=== PATIENT | male | born 1935 | race Asian ===

== ENCOUNTER 2022-01-07 09:46 | Inpatient (IN) ==
[2022-01-07 11:46] LABS: Amorphous Crystals,Urine Occasional /HPF (Few); Mucus,Urine Many /LPF (Occasional); RBC,Urine 5086 /HPF (0-4)
[2022-01-07 11:51] LABS: Bilirubin,Urine Moderate mg/dL (Negative); Blood, Urine Large mg/dL (Negative); Glucose,Urine (UA) Negative (Negative); Ketones,Urine Trace mg/dL (Negative); Nitrite,Urine Negative (Negative); Protein,Urine >=300 mg/dL (Negative); Urine Appearance Cloudy (Clear); Urine Color Brown (Yellow); Urine Specific Gravity 1.025 (1.001-1.035); Urine pH 5.5 (4.5-8.0)
[2022-01-07 12:10] LABS: Basophils % 0.2 % (0.0-0.8); Eosinophils # 0.1 10*3/uL (0.0-0.87); Eosinophils % 0.6 % (0.00-10.9); Hematocrit 34.6 VOL% (42.0-52.0); Hemoglobin 11.2 GM/DL (14.0-18.0); Immature Granulocytes % 0.1 %; Immature Granulocytes Absolute 0.01 #; Lymphocytes # 1.1 10*3/uL (1.4-4.0); Lymphocytes % 13.2 % (21.2-54.2); Mean Corpuscular HGB Conc 32.4 GM/DL (32-36); Mean Corpuscular Volume 106.5 FL (87-102); Mean Platelet Volume 12.3 FL (9.6-12.0); Monocytes % 6.2 % (1.7-12.7); Neutrophils % 79.7 % (38.7-73.9); Platelet Count 135 T/CUMM (130-400); Red Blood Count 3.25 MC/CUMM (3.8-5.5); Red Cell Distribution Width 11.9 % (9.3-17.3); White Blood Count 8.2 T/CUMM (4-12)
[2022-01-07 12:36] LABS: Albumin 3.5 G/DL (3.4-5.0); Bilirubin,Total 0.4 MG/DL (0.20-1.00); Calcium 8.1 MG/DL (8.5-10.1); Osmolality,Calculated 283.3 MOS/KG (273-304); Total Protein 7.2 G/DL (6.4-8.2)
[2022-01-07] MEDS ORDERED: SODIUM CHLORIDE 0.9% 1,000 ML IV STA (12:48)
[2022-01-07 13:57] LABS: Eosinophils 2 % (0-10); Lymphocytes 13 % (20-55); Segmented Neutrophils 84 % (50-85); Total Cells Counted 100
[2022-01-07 13:58] LABS: Stomatocytes Slight
[2022-01-07 13:59] LABS: Platelet Estimate Adequate
[2022-01-07] MEDS ORDERED: GLUCAGON 1 MG VIAL IM PRN (18:30)
[2022-01-07] MEDS ORDERED: DEXTROSE 10% 250 ML BAG IV PRN (18:39)
[2022-01-07] MEDS: DIPYRIDAMOLE/ASPIRIN 200-25 MG CAPSULE PO SCH (21:45)
[2022-01-07] MEDS: ATORVASTATIN 40 MG TABLET PO SCH (21:45)
[2022-01-08 06:18] LABS: Basophils % 0.1 % (0.0-0.8); Eosinophils # 0.1 10*3/uL (0.0-0.87); Eosinophils % 0.8 % (0.00-10.9); Hematocrit 38.3 VOL% (42.0-52.0); Hemoglobin 12.5 GM/DL (14.0-18.0); Immature Granulocytes % 0.3 %; Immature Granulocytes Absolute 0.02 #; Lymphocytes # 1.3 10*3/uL (1.4-4.0); Lymphocytes % 15.9 % (21.2-54.2); Mean Corpuscular HGB Conc 32.6 GM/DL (32-36); Mean Corpuscular Volume 105.5 FL (87-102); Mean Platelet Volume 12.4 FL (9.6-12.0); Monocytes % 4.8 % (1.7-12.7); Neutrophils % 78.1 % (38.7-73.9); Platelet Count 123 T/CUMM (130-400); Red Blood Count 3.63 MC/CUMM (3.8-5.5); White Blood Count 7.9 T/CUMM (4-12)
[2022-01-08 06:57] LABS: Calcium 8.5 MG/DL (8.5-10.1); Osmolality,Calculated 280.1 MOS/KG (273-304); Potassium 4.1 MMOL/L (3.5-5.1); Thyroid Stimulating Hormone 2.87 uIU/ml (0.358-3.74)
[2022-01-08] MEDS: SULFAMETHOX/TRIMETHOPRIM 800-160 MG TABLET PO SCH ×2 (16:37→21:37)
[2022-01-08] MEDS: DEXTROSE 5% NACL 0.45% 1,000 ML IV SCH (16:38)
[2022-01-08] MEDS: PANTOPRAZOLE 40 MG TABLET PO SCH (16:38)
[2022-01-08] MEDS: DIPYRIDAMOLE/ASPIRIN 200-25 MG CAPSULE PO SCH (17:09)
[2022-01-08] MEDS: ATORVASTATIN 40 MG TABLET PO SCH (21:36)
[2022-01-09] MEDS: DEXTROSE 5% NACL 0.45% 1,000 ML IV SCH ×2 (02:47→10:59)
[2022-01-09 05:46] LABS: Basophils % 0.3 % (0.0-0.8); Eosinophils # 0.1 10*3/uL (0.0-0.87); Hematocrit 34.6 VOL% (42.0-52.0); Hemoglobin 11.2 GM/DL (14.0-18.0); Immature Granulocytes % 0.1 %; Immature Granulocytes Absolute 0.01 #; Lymphocytes # 1.6 10*3/uL (1.4-4.0); Lymphocytes % 21.7 % (21.2-54.2); Mean Corpuscular HGB Conc 32.4 GM/DL (32-36); Mean Corpuscular Volume 107.1 FL (87-102); Mean Platelet Volume 12.3 FL (9.6-12.0); Monocytes % 6.2 % (1.7-12.7); Neutrophils % 70.7 % (38.7-73.9); Platelet Count 135 T/CUMM (130-400); Red Blood Count 3.23 MC/CUMM (3.8-5.5); White Blood Count 7.3 T/CUMM (4-12)
[2022-01-09 06:07] LABS: Calcium 8.1 MG/DL (8.5-10.1); Osmolality,Calculated 279.3 MOS/KG (273-304); Potassium 3.4 MMOL/L (3.5-5.1)
[2022-01-09] MEDS: PANTOPRAZOLE 40 MG TABLET PO SCH (09:48)
[2022-01-09] MEDS: SULFAMETHOX/TRIMETHOPRIM 800-160 MG TABLET PO SCH ×2 (09:48→20:52)
[2022-01-09] MEDS: ATORVASTATIN 40 MG TABLET PO SCH (20:52)
[2022-01-10 08:18] VITALS: BP 103/85
[2022-01-10] MEDS ORDERED: amLODIPine 5 MG TABLET PO SCH (09:00)
[2022-01-10 09:09] LABS: Basophils % 0.5 % (0.0-0.8); Eosinophils # 0.1 10*3/uL (0.0-0.87); Eosinophils % 1.2 % (0.00-10.9); Hematocrit 36.5 VOL% (42.0-52.0); Hemoglobin 11.5 GM/DL (14.0-18.0); Immature Granulocytes % 0.3 %; Immature Granulocytes Absolute 0.02 #; Lymphocytes # 1.3 10*3/uL (1.4-4.0); Mean Corpuscular HGB Conc 31.5 GM/DL (32-36); Mean Corpuscular Volume 107.7 FL (87-102); Mean Platelet Volume 12.3 FL (9.6-12.0); Monocytes % 4.6 % (1.7-12.7); Neutrophils % 71.4 % (38.7-73.9); Platelet Count 122 T/CUMM (130-400); Red Blood Count 3.39 MC/CUMM (3.8-5.5); White Blood Count 5.9 T/CUMM (4-12)
[2022-01-10 09:26] LABS: Calcium 8.5 MG/DL (8.5-10.1); Osmolality,Calculated 280.3 MOS/KG (273-304); Potassium 4.2 MMOL/L (3.5-5.1)
[2022-01-10] MEDS: PANTOPRAZOLE 40 MG TABLET PO SCH (09:26)
[2022-01-10] MEDS: SULFAMETHOX/TRIMETHOPRIM 800-160 MG TABLET PO SCH (09:26)
[2022-01-10] MEDS ORDERED: LIDOCAINE 2% TOP JELLY 20 ML VIAL INTRAURETH ONE (11:28)
[2022-01-10] MEDS ORDERED: DUTASTERIDE 0.5 MG CAPSULE PO SCH (13:00)
== END 2022-01-10 16:50 | disposition home or self-care (01) | DRG 726 ==
LOC: N.ED 09:46 → N.EDINP 09:46 → SUATTDRO 19:30 → N.5E 01-08 04:40
PROVIDERS: ADMIT Internal Medicine; ATTEND Internal Medicine Geriatric Medicine

== ENCOUNTER 2022-07-06 04:59 | Inpatient (IN) ==
[2022-07-06] MEDS ORDERED: ALVIMOPAN 12 MG CAPSULE PO ONE (06:00)
[2022-07-06] MEDS ORDERED: MIDAZOLAM 2 MG/2 ML VIAL ONE (06:29)
[2022-07-06] MEDS ORDERED: fentaNYL 100 MCG/2 ML VIAL ONE ×2 (06:29→09:33)
[2022-07-06] MEDS ORDERED: LIDOCAINE 2% 5 ML VIAL ONE (06:29)
[2022-07-06] MEDS ORDERED: propofoL 200 MG/20 ML VIAL IV ONE (06:29)
[2022-07-06] MEDS ORDERED: ROCURONIUM 50 MG/5 ML VIAL IV ONE ×2 (06:29→09:00)
[2022-07-06] MEDS: LACTATED RINGERS 1,000 ML IV SCH (06:31)
[2022-07-06] MEDS ORDERED: cefTRIAXone 1,000 MG VIAL ONE (06:53)
[2022-07-06] MEDS ORDERED: LEVOFLOXACIN INJ 500 MG/100 ML PREMIX IV ONE (07:00)
[2022-07-06] MEDS ORDERED: SEVOFLURANE 1 UNIT/15 MINUTE INH ONE ×4 (08:02→10:28)
[2022-07-06] MEDS ORDERED: PHENYLEPHRINE 1 MG/10 ML SYRINGE IV ONE (08:02)
[2022-07-06] MEDS ORDERED: ETOMIDATE 40 MG/20 ML VIAL IV ONE (09:00)
[2022-07-06] MEDS ORDERED: ACETAMINOPHEN INJ 1,000 MG/100 ML VIAL IV ONE (09:06)
[2022-07-06] MEDS ORDERED: LACTATED RINGERS 1,000 ML IV ONE (10:01)
[2022-07-06] MEDS ORDERED: SODIUM CHLORIDE 0.9% 1,000 ML IV ONE (10:01)
[2022-07-06] MEDS ORDERED: SUGAMMADEX 200 MG/2 ML VIAL IV ONE (10:18)
[2022-07-06] MEDS ORDERED: HYDROmorphone 1 MG/1 ML SYRINGE IV PRN (10:34)
[2022-07-06 10:57] LABS: RBC,Urine 219 /HPF (0-4); Squamous Epithelial Cell,Urine Occasional /HPF (0-10)
[2022-07-06 10:58] LABS: Bilirubin,Urine Negative (Negative); Blood, Urine Large mg/dL (Negative); Glucose,Urine (UA) Negative (Negative); Ketones,Urine Negative (Negative); Nitrite,Urine Negative (Negative); Protein,Urine 100 mg/dL (Negative); Urine Appearance Clear (Clear); Urine Color Light Red (Yellow); Urine Specific Gravity 1.015 (1.001-1.035); Urine Urobilinogen 0.2 eU/dL (<2.0)
[2022-07-06] MEDS ORDERED: PROMETHAZINE INJ 25 MG in SODIUM CHLORIDE 0.9% 50 ML IV PRN (11:05)
[2022-07-06] MEDS ORDERED: MEPERIDINE 25 MG/1 ML VIAL IV PRN (11:05)
[2022-07-06] MEDS ORDERED: diphenhydrAMINE 50 MG/1 ML VIAL IV PRN (11:05)
[2022-07-06] MEDS ORDERED: ONDANSETRON 4 MG/2 ML VIAL IV PRN (11:05)
[2022-07-06 11:08] LABS: Hematocrit 33.8 VOL% (42.0-52.0); Hemoglobin 11.1 GM/DL (14.0-18.0)
[2022-07-06] MEDS: HYDROmorphone 1 MG/1 ML SYRINGE IV PRN ×2 (11:10→11:15)
[2022-07-06] MEDS: SODIUM CHLORIDE 0.9% 1,000 ML IV SCH ×2 (11:19→21:30)
[2022-07-06] MEDS: OXYBUTYNIN XL 10 MG TABLET PO SCH (15:04)
[2022-07-07 05:16] LABS: Basophils % 0.4 % (0.0-0.8); Eosinophils # 0.1 10*3/uL (0.0-0.87); Eosinophils % 0.8 % (0.00-10.9); Hematocrit 32.5 VOL% (42.0-52.0); Hemoglobin 10.5 GM/DL (14.0-18.0); Immature Granulocytes % 0.4 %; Immature Granulocytes Absolute 0.03 #; Lymphocytes # 0.8 10*3/uL (1.4-4.0); Lymphocytes % 10.3 % (21.2-54.2); Mean Corpuscular HGB Conc 32.3 GM/DL (32-36); Mean Corpuscular Volume 105.9 FL (87-102); Mean Platelet Volume 12.7 FL (9.6-12.0); Monocytes # 0.6 10*3/uL (0.11-0.8); Monocytes % 8.1 % (1.7-12.7); Platelet Count 102 T/CUMM (130-400); Red Blood Count 3.07 MC/CUMM (3.8-5.5); Red Cell Distribution Width 11.9 % (9.3-17.3); White Blood Count 7.6 T/CUMM (4-12)
[2022-07-07 05:32] LABS: Calcium 7.9 MG/DL (8.5-10.1); Osmolality,Calculated 277.5 MOS/KG (273-304); Potassium 3.9 MMOL/L (3.5-5.1)
[2022-07-07] MEDS: LACTATED RINGERS 1,000 ML IV SCH (06:53)
[2022-07-07] MEDS: SODIUM CHLORIDE 0.9% 1,000 ML IV SCH (06:53)
[2022-07-07] MEDS: amLODIPine 5 MG TABLET PO SCH (08:00)
[2022-07-07] MEDS: ATORVASTATIN 40 MG TABLET PO SCH (08:01)
[2022-07-07] MEDS: OXYBUTYNIN XL 10 MG TABLET PO SCH (08:01)
[2022-07-07] MEDS: DUTASTERIDE 0.5 MG CAPSULE PO SCH (09:13)
[2022-07-07 17:34] LABS: Bilirubin,Total 1.2 MG/DL (0.20-1.00); Osmolality,Calculated 276.7 MOS/KG (273-304); Potassium 3.7 MMOL/L (3.5-5.1); Total Protein 6.9 G/DL (6.4-8.2)
[2022-07-08 07:38] VITALS: BP 136/62
[2022-07-08] MEDS: ATORVASTATIN 40 MG TABLET PO SCH (08:11)
[2022-07-08] MEDS: OXYBUTYNIN XL 10 MG TABLET PO SCH (08:11)
[2022-07-08] MEDS: amLODIPine 5 MG TABLET PO SCH (08:11)
[2022-07-08] MEDS: DUTASTERIDE 0.5 MG CAPSULE PO SCH (08:11)
[2022-07-08] MEDS: LACTATED RINGERS 1,000 ML IV SCH (08:13)
== END 2022-07-08 12:19 | disposition home health service (06) | DRG 657 ==
LOC: N.OR 04:59 → N.SDSINP 05:01 → N.3E 11:47
PROVIDERS: ADMIT Urology; ATTEND Urology

== ENCOUNTER 2022-07-09 15:19 | Inpatient (IN) ==
[2022-07-09 16:40] LABS: Basophils % 0.2 % (0.0-0.8); Eosinophils # 0.3 10*3/uL (0.0-0.87); Eosinophils % 2.9 % (0.00-10.9); Hematocrit 31.4 VOL% (42.0-52.0); Hemoglobin 10.3 GM/DL (14.0-18.0); Lymphocytes % 10.3 % (21.2-54.2); Mean Corpuscular HGB Conc 32.8 GM/DL (32-36); Mean Corpuscular Volume 103.3 FL (87-102); Mean Platelet Volume 12.5 FL (9.6-12.0); Monocytes # 0.8 10*3/uL (0.11-0.8); Monocytes % 7.7 % (1.7-12.7); Neutrophils % 78.5 % (38.7-73.9); Platelet Count 113 T/CUMM (130-400); Red Blood Count 3.04 MC/CUMM (3.8-5.5); Red Cell Distribution Width 11.5 % (9.3-17.3); White Blood Count 9.8 T/CUMM (4-12)
[2022-07-09 16:52] LABS: Glucose,Urine (UA) Negative (Negative); Ketones,Urine Negative (Negative); Nitrite,Urine Negative (Negative); Protein,Urine 100 mg/dL (Negative); Urine Appearance Clear (Clear); Urine Color Yellow (Yellow); Urine pH 5.5 (4.5-8.0)
[2022-07-09 16:53] LABS: Bilirubin,Urine Negative (Negative); Blood, Urine Large mg/dL (Negative); Urine Urobilinogen < 2.0 eU/dL (<2.0)
[2022-07-09 16:57] LABS: Mucus,Urine Occasional /LPF (Occasional); RBC,Urine 408 /HPF (0-4)
[2022-07-09 17:10] LABS: Albumin 2.9 G/DL (3.4-5.0); Calcium 8.9 MG/DL (8.5-10.1); Potassium 3.7 MMOL/L (3.5-5.1); Total Protein 7.2 G/DL (6.4-8.2)
[2022-07-09] MEDS ORDERED: LACTATED RINGERS 500 ML IV ONE (17:29)
[2022-07-09 17:38] LABS: Eosinophils 4 % (0-10); Lymphocytes 13 % (20-55); Macrocytosis Slight; Platelet Estimate Normal; Total Cells Counted 100
[2022-07-09 17:39] LABS: Atypical Lymphocytes Few
[2022-07-09] MEDS ORDERED: ACETAMINOPHEN 325 MG TABLET PO PRN (18:24)
[2022-07-09] MEDS ORDERED: DOCUSATE SODIUM 100 MG CAPSULE PO PRN (18:24)
[2022-07-09] MEDS ORDERED: ONDANSETRON 4 MG/2 ML VIAL IV PRN (18:24)
[2022-07-09] MEDS: SODIUM CHLORIDE 0.45% 1,000 ML IV SCH (23:13)
[2022-07-10 05:12] LABS: Basophils % 0.1 % (0.0-0.8); Eosinophils # 0.3 10*3/uL (0.0-0.87); Eosinophils % 4.2 % (0.00-10.9); Hemoglobin 9.7 GM/DL (14.0-18.0); Immature Granulocytes % 0.4 %; Immature Granulocytes Absolute 0.03 #; Lymphocytes # 0.9 10*3/uL (1.4-4.0); Lymphocytes % 10.5 % (21.2-54.2); Mean Corpuscular HGB Conc 33.4 GM/DL (32-36); Mean Corpuscular Volume 102.5 FL (87-102); Mean Platelet Volume 12.8 FL (9.6-12.0); Monocytes # 0.5 10*3/uL (0.11-0.8); Monocytes % 6.7 % (1.7-12.7); Neutrophils % 78.1 % (38.7-73.9); Platelet Count 108 T/CUMM (130-400); Red Blood Count 2.83 MC/CUMM (3.8-5.5); Red Cell Distribution Width 11.4 % (9.3-17.3); White Blood Count 8.1 T/CUMM (4-12)
[2022-07-10 05:43] LABS: Risk Ratio 2.78; VLDL Cholesterol 20.4 MG/DL
[2022-07-10 05:50] LABS: Calcium 8.7 MG/DL (8.5-10.1); Osmolality,Calculated 278.7 MOS/KG (273-304); Potassium 3.7 MMOL/L (3.5-5.1)
[2022-07-10] MEDS ORDERED: CLOPIDOGREL 75 MG TABLET PO SCH (09:00)
[2022-07-10] MEDS: DUTASTERIDE 0.5 MG CAPSULE PO SCH (09:09)
[2022-07-10] MEDS: ATORVASTATIN 40 MG TABLET PO SCH (09:09)
[2022-07-10] MEDS: amLODIPine 5 MG TABLET PO SCH (09:09)
[2022-07-10] MEDS: SODIUM CHLORIDE 0.45% 1,000 ML IV SCH (12:25)
[2022-07-10] MEDS: THIAMINE 100 MG TABLET PO SCH (21:56)
[2022-07-11] MEDS: SODIUM CHLORIDE 0.45% 1,000 ML IV SCH ×2 (05:20→21:10)
[2022-07-11 05:27] LABS: Basophils % 0.2 % (0.0-0.8); Eosinophils # 0.3 10*3/uL (0.0-0.87); Eosinophils % 3.8 % (0.00-10.9); Hematocrit 29.6 VOL% (42.0-52.0); Hemoglobin 10.1 GM/DL (14.0-18.0); Immature Granulocytes % 0.5 %; Immature Granulocytes Absolute 0.04 #; Lymphocytes # 0.9 10*3/uL (1.4-4.0); Lymphocytes % 10.2 % (21.2-54.2); Mean Corpuscular HGB Conc 34.1 GM/DL (32-36); Mean Corpuscular Volume 101.4 FL (87-102); Mean Platelet Volume 12.7 FL (9.6-12.0); Monocytes # 0.5 10*3/uL (0.11-0.8); Neutrophils % 79.3 % (38.7-73.9); Platelet Count 151 T/CUMM (130-400); Red Blood Count 2.92 MC/CUMM (3.8-5.5); Red Cell Distribution Width 11.3 % (9.3-17.3); White Blood Count 8.9 T/CUMM (4-12)
[2022-07-11 05:46] LABS: Calcium 8.5 MG/DL (8.5-10.1); Osmolality,Calculated 277.7 MOS/KG (273-304); Potassium 3.4 MMOL/L (3.5-5.1)
[2022-07-11] MEDS: ATORVASTATIN 40 MG TABLET PO SCH (09:37)
[2022-07-11] MEDS: THIAMINE 100 MG TABLET PO SCH ×2 (09:37→21:09)
[2022-07-11] MEDS: ASPIRIN EC 81 MG TABLET PO SCH (09:37)
[2022-07-11] MEDS: DUTASTERIDE 0.5 MG CAPSULE PO SCH (09:38)
[2022-07-11] MEDS: amLODIPine 5 MG TABLET PO SCH (09:38)
[2022-07-11] MEDS: CYANOCOBALAMIN 1000 MCG/1 ML VIAL SUBCUT SCH (09:43)
[2022-07-11] MEDS ORDERED: POTASSIUM CHLORIDE 20 MEQ TABLET PO ONE (16:28)
[2022-07-12 05:56] LABS: Basophils % 0.2 % (0.0-0.8); Eosinophils # 0.5 10*3/uL (0.0-0.87); Eosinophils % 5.1 % (0.00-10.9); Hematocrit 31.2 VOL% (42.0-52.0); Hemoglobin 10.4 GM/DL (14.0-18.0); Immature Granulocytes % 0.4 %; Immature Granulocytes Absolute 0.04 #; Lymphocytes # 1.2 10*3/uL (1.4-4.0); Lymphocytes % 11.1 % (21.2-54.2); Mean Corpuscular HGB Conc 33.3 GM/DL (32-36); Mean Platelet Volume 12.3 FL (9.6-12.0); Monocytes # 0.6 10*3/uL (0.11-0.8); Neutrophils % 77.2 % (38.7-73.9); Platelet Count 189 T/CUMM (130-400); Red Blood Count 3.09 MC/CUMM (3.8-5.5); Red Cell Distribution Width 11.6 % (9.3-17.3); White Blood Count 10.4 T/CUMM (4-12)
[2022-07-12 06:11] LABS: Calcium 8.8 MG/DL (8.5-10.1); Osmolality,Calculated 279.5 MOS/KG (273-304)
[2022-07-12] MEDS: THIAMINE 100 MG TABLET PO SCH ×2 (08:24→20:32)
[2022-07-12] MEDS: DUTASTERIDE 0.5 MG CAPSULE PO SCH (08:24)
[2022-07-12] MEDS: ATORVASTATIN 40 MG TABLET PO SCH (08:24)
[2022-07-12] MEDS: ASPIRIN EC 81 MG TABLET PO SCH (08:24)
[2022-07-12] MEDS: CYANOCOBALAMIN 1000 MCG/1 ML VIAL SUBCUT SCH (08:24)
[2022-07-12] MEDS: amLODIPine 5 MG TABLET PO SCH (08:24)
[2022-07-12] MEDS: SODIUM CHLORIDE 0.45% 1,000 ML IV SCH (15:49)
[2022-07-12] MEDS: VIBEGRON 75 MG PO SCH (16:06)
[2022-07-13 05:24] LABS: Basophils % 0.2 % (0.0-0.8); Eosinophils # 0.5 10*3/uL (0.0-0.87); Eosinophils % 5.8 % (0.00-10.9); Hematocrit 29.5 VOL% (42.0-52.0); Hemoglobin 9.6 GM/DL (14.0-18.0); Immature Granulocytes % 0.6 %; Immature Granulocytes Absolute 0.06 #; Lymphocytes # 1.2 10*3/uL (1.4-4.0); Lymphocytes % 12.4 % (21.2-54.2); Mean Corpuscular HGB Conc 32.5 GM/DL (32-36); Mean Corpuscular Volume 103.1 FL (87-102); Mean Platelet Volume 11.8 FL (9.6-12.0); Monocytes # 0.6 10*3/uL (0.11-0.8); Monocytes % 6.9 % (1.7-12.7); Neutrophils % 74.1 % (38.7-73.9); Platelet Count 185 T/CUMM (130-400); Red Blood Count 2.86 MC/CUMM (3.8-5.5); Red Cell Distribution Width 11.6 % (9.3-17.3); White Blood Count 9.3 T/CUMM (4-12)
[2022-07-13 05:46] LABS: Calcium 8.5 MG/DL (8.5-10.1); Osmolality,Calculated 282.3 MOS/KG (273-304); Potassium 4.2 MMOL/L (3.5-5.1)
[2022-07-13] MEDS: amLODIPine 5 MG TABLET PO SCH (08:28)
[2022-07-13] MEDS: CYANOCOBALAMIN 1000 MCG/1 ML VIAL SUBCUT SCH (08:28)
[2022-07-13] MEDS: ASPIRIN EC 81 MG TABLET PO SCH (08:28)
[2022-07-13] MEDS: SODIUM CHLORIDE 0.45% 1,000 ML IV SCH (08:28)
[2022-07-13] MEDS: DUTASTERIDE 0.5 MG CAPSULE PO SCH (08:28)
[2022-07-13] MEDS: ATORVASTATIN 40 MG TABLET PO SCH (08:28)
[2022-07-13] MEDS: THIAMINE 100 MG TABLET PO SCH (08:29)
[2022-07-13] MEDS: VIBEGRON 75 MG PO SCH (08:29)
[2022-07-13 11:48] VITALS: BP 124/65
[2022-07-13 12:00] LABS: % Iron Saturation 9.5 % (18-50); Ferritin 507.7 ng/mL (26-388)
[2022-07-13 12:19] LABS: Vitamin B12 > 2000 PG/ML (211-911)
== END 2022-07-13 15:14 | disposition swing bed (61) | DRG 640 ==
LOC: N.EDINP 15:19 → N.ED 15:19 → SUATTDRO 19:45 → N.EDINP 22:15 → N.5E 22:48
PROVIDERS: ADMIT Hospitalist; ATTEND Internal Medicine

== ENCOUNTER 2022-08-03 15:46 | Inpatient (IN) ==
[2022-08-03] MEDS ORDERED: SODIUM CHLORIDE 0.9% 1,000 ML IV STA (16:18)
[2022-08-03 16:46] LABS: Basophils # 0.1 10*3/uL (0.0-0.2); Basophils % 0.7 % (0.0-0.8); Eosinophils # 0.1 10*3/uL (0.0-0.87); Eosinophils % 1.3 % (0.00-10.9); Hematocrit 35.9 VOL% (42.0-52.0); Hemoglobin 11.5 GM/DL (14.0-18.0); Immature Granulocytes % 0.4 %; Immature Granulocytes Absolute 0.04 #; Lymphocytes # 1.9 10*3/uL (1.4-4.0); Lymphocytes % 21.4 % (21.2-54.2); Mean Corpuscular Volume 102.6 FL (87-102); Mean Platelet Volume 11.5 FL (9.6-12.0); Monocytes # 0.5 10*3/uL (0.11-0.8); Neutrophils % 70.2 % (38.7-73.9); Platelet Count 139 T/CUMM (130-400); Red Cell Distribution Width 12.9 % (9.3-17.3)
[2022-08-03 16:53] LABS: INR 0.9; PT Patient Result 10.5 SECS (10.1-12.1)
[2022-08-03 17:03] LABS: Albumin 3.8 G/DL (3.4-5.0); Bilirubin,Total 0.4 MG/DL (0.20-1.00); Osmolality,Calculated 285.7 MOS/KG (273-304); Potassium 5.3 MMOL/L (3.5-5.1); Total Protein 8.3 G/DL (6.4-8.2)
[2022-08-03 18:52] LABS: Bilirubin,Urine Negative (Negative); Blood, Urine Small mg/dL (Negative); Glucose,Urine (UA) Negative (Negative); Hyaline Casts,Urine 1 /LPF (0-3); Ketones,Urine Negative (Negative); Mucus,Urine Occasional /LPF (Occasional); Nitrite,Urine Negative (Negative); Protein,Urine 30 mg/dL (Negative); RBC,Urine 10 /HPF (0-4); Urine Appearance CLEAR (Clear); Urine Color Yellow (Yellow); Urine Specific Gravity 1.013 (1.001-1.035); Urine Urobilinogen < 2.0 eU/dL (<2.0)
[2022-08-03] MEDS ORDERED: SODIUM CHLORIDE 0.9% 500 ML IV STA (19:06)
[2022-08-03] MEDS ORDERED: ACETAMINOPHEN 325 MG TABLET PO PRN (19:22)
[2022-08-03] MEDS ORDERED: ONDANSETRON 4 MG/2 ML VIAL IV PRN (19:22)
[2022-08-03] MEDS ORDERED: SIMETHICONE CHEW 125 MG TABLET PO PRN (19:22)
[2022-08-03] MEDS: HEPARIN 5,000 UNIT/1 ML VIAL SUBCUT SCH (20:56)
[2022-08-03] MEDS: DOCUSATE SODIUM 100 MG CAPSULE PO SCH (20:56)
[2022-08-03] MEDS: SODIUM CHLORIDE 23.4% CONC INJ 38.5 MEQ, SODIUM BICARB INJ 100 MEQ in STERILE WATER INJ... IV SCH (20:57)
[2022-08-04 05:05] LABS: Basophils % 0.4 % (0.0-0.8); Eosinophils # 0.2 10*3/uL (0.0-0.87); Eosinophils % 2.8 % (0.00-10.9); Hematocrit 29.9 VOL% (42.0-52.0); Hemoglobin 9.6 GM/DL (14.0-18.0); Immature Granulocytes % 0.3 %; Immature Granulocytes Absolute 0.02 #; Lymphocytes % 27.3 % (21.2-54.2); Mean Corpuscular HGB Conc 32.1 GM/DL (32-36); Mean Corpuscular Volume 104.5 FL (87-102); Mean Platelet Volume 12.2 FL (9.6-12.0); Monocytes # 0.5 10*3/uL (0.11-0.8); Monocytes % 7.3 % (1.7-12.7); Neutrophils % 61.9 % (38.7-73.9); Platelet Count 112 T/CUMM (130-400); Red Blood Count 2.86 MC/CUMM (3.8-5.5); White Blood Count 7.2 T/CUMM (4-12)
[2022-08-04 05:24] LABS: Albumin 3.1 G/DL (3.4-5.0); Osmolality,Calculated 289.1 MOS/KG (273-304); Phosphorous 3.2 MG/DL (2.5-4.9); Potassium 4.9 MMOL/L (3.5-5.1)
[2022-08-04 05:32] LABS: Thyroid Stimulating Hormone 2.2 uIU/ml (0.358-3.74)
[2022-08-04] MEDS ORDERED: ASPIRIN EC 81 MG TABLET PO SCH (09:00)
[2022-08-04] MEDS: ATORVASTATIN 40 MG TABLET PO SCH (09:19)
[2022-08-04] MEDS: DOCUSATE SODIUM 100 MG CAPSULE PO SCH ×2 (09:19→21:46)
[2022-08-04] MEDS: HEPARIN 5,000 UNIT/1 ML VIAL SUBCUT SCH ×2 (09:25→21:46)
[2022-08-04] MEDS: SODIUM CHLORIDE 23.4% CONC INJ 38.5 MEQ, SODIUM BICARB INJ 100 MEQ in STERILE WATER INJ... IV SCH ×2 (09:28→21:46)
[2022-08-04 12:30] LABS: Calcium 8.1 MG/DL (8.5-10.1); Osmolality,Calculated 284.4 MOS/KG (273-304)
[2022-08-05] MEDS: SODIUM CHLORIDE 23.4% CONC INJ 38.5 MEQ, SODIUM BICARB INJ 100 MEQ in STERILE WATER INJ... IV SCH (05:27)
[2022-08-05 05:49] LABS: Basophils % 0.6 % (0.0-0.8); Eosinophils # 0.2 10*3/uL (0.0-0.87); Hematocrit 29.6 VOL% (42.0-52.0); Hemoglobin 9.5 GM/DL (14.0-18.0); Immature Granulocytes % 0.3 %; Immature Granulocytes Absolute 0.02 #; Lymphocytes % 29.1 % (21.2-54.2); Mean Corpuscular HGB Conc 32.1 GM/DL (32-36); Mean Corpuscular Volume 101.4 FL (87-102); Mean Platelet Volume 12.3 FL (9.6-12.0); Monocytes # 0.5 10*3/uL (0.11-0.8); Monocytes % 7.1 % (1.7-12.7); Neutrophils % 59.9 % (38.7-73.9); Platelet Count 104 T/CUMM (130-400); Red Blood Count 2.92 MC/CUMM (3.8-5.5); Red Cell Distribution Width 12.8 % (9.3-17.3); White Blood Count 6.9 T/CUMM (4-12)
[2022-08-05 06:00] LABS: Calcium 8.2 MG/DL (8.5-10.1); Osmolality,Calculated 286.3 MOS/KG (273-304); Potassium 4.2 MMOL/L (3.5-5.1)
[2022-08-05 06:17] LABS: Platelet Estimate Decreased
[2022-08-05] MEDS: DOCUSATE SODIUM 100 MG CAPSULE PO SCH ×2 (09:19→21:07)
[2022-08-05] MEDS: ATORVASTATIN 40 MG TABLET PO SCH (09:19)
[2022-08-05] MEDS: HEPARIN 5,000 UNIT/1 ML VIAL SUBCUT SCH ×2 (09:20→21:07)
[2022-08-06] MEDS: SODIUM CHLORIDE 23.4% CONC INJ 38.5 MEQ, SODIUM BICARB INJ 100 MEQ in STERILE WATER INJ... IV SCH ×2 (01:41→13:44)
[2022-08-06 06:22] LABS: Basophils % 0.6 % (0.0-0.8); Eosinophils # 0.4 10*3/uL (0.0-0.87); Hematocrit 32.2 VOL% (42.0-52.0); Hemoglobin 10.2 GM/DL (14.0-18.0); Immature Granulocytes % 0.4 %; Immature Granulocytes Absolute 0.03 #; Lymphocytes # 2.5 10*3/uL (1.4-4.0); Lymphocytes % 34.8 % (21.2-54.2); Mean Corpuscular HGB Conc 31.7 GM/DL (32-36); Mean Corpuscular Volume 101.6 FL (87-102); Mean Platelet Volume 12.1 FL (9.6-12.0); Monocytes # 0.5 10*3/uL (0.11-0.8); Monocytes % 6.4 % (1.7-12.7); Neutrophils % 52.8 % (38.7-73.9); Platelet Count 112 T/CUMM (130-400); Red Blood Count 3.17 MC/CUMM (3.8-5.5); Red Cell Distribution Width 12.7 % (9.3-17.3); White Blood Count 7.1 T/CUMM (4-12)
[2022-08-06 06:54] LABS: Calcium 8.7 MG/DL (8.5-10.1); Osmolality,Calculated 288.3 MOS/KG (273-304); Potassium 4.3 MMOL/L (3.5-5.1)
[2022-08-06] MEDS: HEPARIN 5,000 UNIT/1 ML VIAL SUBCUT SCH ×2 (09:58→20:28)
[2022-08-06] MEDS: ATORVASTATIN 40 MG TABLET PO SCH (09:58)
[2022-08-06] MEDS: DOCUSATE SODIUM 100 MG CAPSULE PO SCH ×2 (11:27→20:28)
[2022-08-06 13:11] LABS: Folate 12.06 NG/ML (5.38-24.0)
[2022-08-07 05:33] LABS: Basophils % 0.6 % (0.0-0.8); Eosinophils # 0.5 10*3/uL (0.0-0.87); Eosinophils % 7.7 % (0.00-10.9); Hematocrit 29.3 VOL% (42.0-52.0); Hemoglobin 9.4 GM/DL (14.0-18.0); Immature Granulocytes % 0.3 %; Immature Granulocytes Absolute 0.02 #; Lymphocytes # 1.7 10*3/uL (1.4-4.0); Lymphocytes % 25.9 % (21.2-54.2); Mean Corpuscular HGB Conc 32.1 GM/DL (32-36); Mean Corpuscular Volume 102.8 FL (87-102); Mean Platelet Volume 12.2 FL (9.6-12.0); Monocytes # 0.4 10*3/uL (0.11-0.8); Monocytes % 6.8 % (1.7-12.7); Neutrophils % 58.7 % (38.7-73.9); Red Blood Count 2.85 MC/CUMM (3.8-5.5); Red Cell Distribution Width 12.7 % (9.3-17.3); White Blood Count 6.4 T/CUMM (4-12)
[2022-08-07 05:38] LABS: Platelet Count 98 T/CUMM (130-400)
[2022-08-07 06:00] LABS: Calcium 8.5 MG/DL (8.5-10.1); Osmolality,Calculated 291.8 MOS/KG (273-304)
[2022-08-07 06:03] LABS: Calcium 8.4 MG/DL (8.5-10.1); Osmolality,Calculated 291.8 MOS/KG (273-304); Potassium 4.2 MMOL/L (3.5-5.1)
[2022-08-07 06:07] LABS: Platelet Estimate Decreased
[2022-08-07] MEDS: DOCUSATE SODIUM 100 MG CAPSULE PO SCH (09:48)
[2022-08-07] MEDS: SODIUM CHLORIDE 23.4% CONC INJ 38.5 MEQ, SODIUM BICARB INJ 100 MEQ in STERILE WATER INJ... IV SCH (09:48)
[2022-08-07] MEDS: HEPARIN 5,000 UNIT/1 ML VIAL SUBCUT SCH (09:48)
[2022-08-07] MEDS: ATORVASTATIN 40 MG TABLET PO SCH (09:48)
[2022-08-07 12:27] VITALS: BP 117/60
== END 2022-08-07 12:24 | disposition home health service (06) | DRG 683 ==
LOC: N.ED 15:46 → SUATTDRO 19:22 → N.EDINP 19:22 → N.5E 21:11
PROVIDERS: ADMIT Internal Medicine; ATTEND Internal Medicine